=== PATIENT | female | born 1965 | race Caucasian/White ===

== ENCOUNTER 2017-07-15 11:56 | Emergency (ER) | payer BC ==
[~2017-07-15] VITALS: Ht 152.4 cm; Wt 49.4 kg
[~2017-07-15 11:56] MED LIST: CELEXA20 MG PO; VALTREX50 MG/ML PO
[2017-07-15 12:55] LABS: EOSINOPHIL (%) 0.4 % (0-5); HEMATOCRIT 35.3 % (36.0-46.0); IMMATURE GRANULOCYTE (%) 0.4 % (0.0-0.7); INSTRUMENT ABS NEUTROPHIL CT 4.1 K/uL; LYMPHOCYTE COUNT 0.9 K/uL (1.0-2.8); MCH 37.8 PG (29.0-34.0); MCV 105.1 FL (83-99); MEAN PLAT.VOLUME 9.8 uM^3 (9.5-12.4); MONOCYTE (%) 6.3 % (3-12); MONOCYTE COUNT 0.3 K/uL (0-0.8); NEUTROPHIL (%) 75.2 % (45-76); NEUTROPHIL COUNT 4.1 K/uL (1.8-6.4); PLATELET COUNT 175 K/uL (156-360); RBC DIS.WIDTH-SD 42.4 % (39-53); RED BLOOD COUNT 3.36 M/uL (3.80-5.20); WHITE BLOOD COUNT 5.4 K/uL (4.1-10.2)
[2017-07-15 13:03] LABS: CHLORIDE 96 mEq/L (99-109); POTASSIUM 3.4 mEq/L (3.7-5.4); SODIUM 140 mEq/L (136-147)
[2017-07-15 13:05] LABS: GLUCOSE 104 mg/dL (70-99)
[2017-07-15 13:06] LABS: ANION GAP 14 MEQ/L (2-14)
[2017-07-15 13:07] LABS: TOTAL BILIRUBIN 0.6 mg/dL (0.0-1.0)
[2017-07-15 13:08] LABS: ALKALINE PHOSPHATASE 75 IU/L (3-129)
[2017-07-15 13:09] LABS: GFR ESTIMATE (CALCULATED) > 59 mL/min/
[2017-07-15 13:10] LABS: UREA NITROGEN (BUN) 7 mg/dL (9-23)
[2017-07-15 13:18] LABS: QUANTITATIVE HCG < 4.0 MIU/ML
[2017-07-15 14:08] LABS: SERUM ETHYL ALCOHOL < 10 mg/dL
[2017-07-15 15:29] VITALS: BP 159/91
== END 2017-07-15 15:25 | disposition home or self-care (01) ==
LOC: EME 11:56
PROVIDERS: Nurse Practitioner Family
PROC: 0HQ0XZZ Repair Scalp Skin, External Approach (ICD-10-PCS; principal; 2017-07-15)
DX: S01.01XA Laceration without foreign body of scalp, initial encounter (principal); F10.10 Alcohol abuse, uncomplicated; W10.9XXA Fall (on) (from) unspecified stairs and steps, initial encounter; F41.9 Anxiety disorder, unspecified; F17.200 Nicotine dependence, unspecified, uncomplicated
CPT/HCPCS: 70450; 80053; 84702; 85025; 93005; 99281; 99283; G0480